=== PATIENT | male | born 1970 | race Native Hawaiian/Other Pacific Islander ===

== ENCOUNTER 2019-10-21 19:21 | Emergency (ER) | payer MEDICARE, OTHER ==
[~2019-10-21] VITALS: Ht 175.3 cm; Wt 101.6 kg
[~2019-10-21 19:21] MED LIST: ALBU1AER4 IN; ASPI-404 PO; ATOR10TA PO; BUDE0.5S IN; CALC667C PO; FORM1POW2 XX; INSUINJ37 SC; METO25TA5 PO; PANT40T PO
[2019-10-21 19:43] VITALS: BP 149/87
== END 2019-10-21 20:08 | disposition home or self-care (01) ==
LOC: ER 19:21
DX: J30.9 Allergic rhinitis, unspecified (principal); R51 Headache; I12.0 Hypertensive chronic kidney disease with stage 5 chronic kidney disease or end stage renal disease; E11.22 Type 2 diabetes mellitus with diabetic chronic kidney disease; N18.6 End stage renal disease
CPT/HCPCS: 82962